=== PATIENT | female | born 1955 | race African-American/Black ===

== ENCOUNTER 2020-11-18 10:52 | Inpatient (IN) | payer MEDICARE, MEDICAID ==
[~2020-11-18] VITALS: Ht 167.6 cm; Wt 80.6 kg
[2020-11-18 11:31] LABS: BASOPHILS % (AUTO) 0.2 % (0.0-2.0); HEMATOCRIT 40.8 % (36-46); HEMOGLOBIN 12.7 g/dL (12.0-16.0); LYMPHOCYTES # (AUTO) 2.5 K/uL (1.0-4.8); LYMPHOCYTES % (AUTO) 41.2 % (22.0-44.0); MEAN CORPUSCULAR HEMOGLOBIN 25.4 pg (26.0-34.0); MEAN CORPUSCULAR HGB CONC 31.3 G/dL (31.0-37.0); MEAN CORPUSCULAR VOLUME 81 fL (80-100); MONOCYTES # (AUTO) 0.4 K/uL (0.1-1.0); MONOCYTES % (AUTO) 6.8 % (2.0-9.0); NEUTROPHILS # (AUTO) 3.1 K/uL (1.8-7.7); NEUTROPHILS % (AUTO) 49.8 % (40.0-70.0); PLATELET COUNT (AUTO) 255 K/uL (150-450); RED BLOOD CELL COUNT(AUTO) 5.02 MIL/uL (4.00-5.20); RED CELL DISTRIBUTION WIDTH 15.1 % (11.5-14.5)
[2020-11-18 11:42] LABS: ANION GAP 5 mmol/L (8-16); CALCIUM, TOTAL 9.2 mg/dL (8.8-10.5); CARBON DIOXIDE 33 mmol/L (22-29); CHLORIDE 103 mmol/L (98-107); CREATININE 0.91 mg/dL (0.60-1.30); GLOMERULAR FILTR. RATE CALC > 60 mL/min (>60); GLUCOSE,RANDOM 125 mg/dL (70-110); POTASSIUM 3.8 mmol/L (3.5-5.1); SODIUM SERUM 141 mmol/L (136-145); UREA NITROGEN, BLOOD 12 mg/dL (7-18)
[2020-11-18 11:47] LABS: ALANINE AMINOTRANSFERASE 50 U/L (12-78); ALBUMIN 3.4 g/dL (3.4-5.0); ALKALINE PHOSPHATASE 77 U/L (46-116); ASPARTATE AMINOTRANSFERASE 51 U/L (15-37); BILIRUBIN,TOTAL 0.2 mg/dL (0.1-1.0); TOTAL PROTEIN, SERUM 7.8 g/dL (6.4-8.2)
[2020-11-18 11:49] LABS: PROTHROMBIN TIME 11.1 SEC (9.4-11.6)
[2020-11-18 12:10] LABS: COVID AG,FIA SOURCE NASOPHARYNGEAL
[2020-11-18] MEDS ORDERED: ASPIRIN 81 MG CHEWABLE TABLET PO ONE (12:15)
[2020-11-18] MEDS ORDERED: 0.9% SODIUM CHLORIDE 10 ML SYRINGE IVP PRN (14:00)
[2020-11-18] MEDS ORDERED: CARV25 PO (16:03)
[2020-11-18] MEDS ORDERED: HYDR25TA84 PO (16:03)
[2020-11-18] MEDS ORDERED: CLON0.2T PO (16:03)
[2020-11-18] MEDS ORDERED: ASPI81TA39 PO (16:03)
[2020-11-18] MEDS ORDERED: CHOL100044 PO (16:06)
[2020-11-18] MEDS ORDERED: ATOR40TA28 PO (16:06)
[2020-11-18] MEDS ORDERED: HydrALAZINE HCL 20 MG/ML VIAL IVP ONE (16:45)
[2020-11-18 17:04] VITALS: BP 156/107
[2020-11-18] MEDS ORDERED: HydrALAZINE HCL 20 MG/ML VIAL IVP PRN (18:30)
[2020-11-18] MEDS ORDERED: ACETAMINOPHEN 325 MG TABLET PO PRN ×2 (18:30→19:45)
[2020-11-18 19:28] VITALS: BP 143/59
[2020-11-18] MEDS ORDERED: ONDANSETRON HCL 4 MG/2 ML VIAL IVP PRN (19:45)
[2020-11-18] MEDS ORDERED: BISACODYL 10 MG RECTAL RECTAL SUPPOSITORY PR PRN (19:45)
[2020-11-18] MEDS ORDERED: MAGNESIUM HYDROXIDE SUSPENSION 30 ML UDCUP PO PRN (19:45)
[2020-11-18] MEDS ORDERED: IPRATROPIUM BROMIDE 0.5 MG/2.5 ML NEB SOLUTION NEB PRN (19:45)
[2020-11-18] MEDS ORDERED: MORPHINE SULFATE 2 MG/ML SYRINGE IVP PRN (19:45)
[2020-11-18] MEDS ORDERED: ALBUTEROL SULFATE 2.5 MG/0.5 ML NEB SOLUTION NEB PRN (19:45)
[2020-11-18] MEDS: HYDROCODONE/ACETAMINOPHEN 5-325 MG TABLET PO PRN (20:23)
[2020-11-18] MEDS: CloNIDine HCL 0.2 MG TABLET PO SCH (20:23)
[2020-11-18] MEDS: DOCUSATE SODIUM 100 MG CAPSULE PO SCH (20:23)
[2020-11-18] MEDS: HEPARIN SODIUM,PORCINE 5,000 UNITS/ML VIAL SQ SCH (22:55)
[2020-11-18 23:34] VITALS: BP 141/88
[2020-11-19] VITALS (7 sets, daily range): BP systolic 119–149; BP diastolic 70–85
[2020-11-19 06:27] LABS: BASOPHILS % (AUTO) 0.7 % (0.0-2.0); EOSINOPHILS % (AUTO) 2.2 % (1.0-6.0); HEMOGLOBIN 11.6 g/dL (12.0-16.0); LYMPHOCYTES % (AUTO) 47.6 % (22.0-44.0); MEAN CORPUSCULAR HEMOGLOBIN 25.3 pg (26.0-34.0); MEAN CORPUSCULAR HGB CONC 31.4 G/dL (31.0-37.0); MEAN CORPUSCULAR VOLUME 81 fL (80-100); MONOCYTES # (AUTO) 0.6 K/uL (0.1-1.0); MONOCYTES % (AUTO) 9.4 % (2.0-9.0); NEUTROPHILS # (AUTO) 2.5 K/uL (1.8-7.7); NEUTROPHILS % (AUTO) 40.1 % (40.0-70.0); PLATELET COUNT (AUTO) 239 K/uL (150-450); RED BLOOD CELL COUNT(AUTO) 4.59 MIL/uL (4.00-5.20); RED CELL DISTRIBUTION WIDTH 14.8 % (11.5-14.5)
[2020-11-19 07:04] LABS: ALANINE AMINOTRANSFERASE 42 U/L (12-78); ALKALINE PHOSPHATASE 64 U/L (46-116); ANION GAP 12 mmol/L (8-16); ASPARTATE AMINOTRANSFERASE 46 U/L (15-37); BILIRUBIN,TOTAL 0.2 mg/dL (0.1-1.0); CALCIUM, TOTAL 8.4 mg/dL (8.8-10.5); CARBON DIOXIDE 27 mmol/L (22-29); CHLORIDE 103 mmol/L (98-107); CREATININE 0.89 mg/dL (0.60-1.30); GLOMERULAR FILTR. RATE CALC > 60 mL/min (>60); GLUCOSE,RANDOM 118 mg/dL (70-110); POTASSIUM 3.5 mmol/L (3.5-5.1); SODIUM SERUM 142 mmol/L (136-145); TOTAL PROTEIN, SERUM 6.9 g/dL (6.4-8.2); UREA NITROGEN, BLOOD 17 mg/dL (7-18)
[2020-11-19] MEDS: DOCUSATE SODIUM 100 MG CAPSULE PO SCH ×2 (08:13→20:03)
[2020-11-19] MEDS: CHOLECALCIFEROL (VIT D3) 1,000 UNITS [25 MCG] TABLET PO SCH (08:13)
[2020-11-19] MEDS: ASPIRIN 81 MG CHEWABLE TABLET PO SCH (08:13)
[2020-11-19] MEDS: CloNIDine HCL 0.2 MG TABLET PO SCH ×3 (08:14→20:03)
[2020-11-19] MEDS: CARVEDILOL 25 MG TABLET PO SCH ×2 (08:14→18:36)
[2020-11-19] MEDS: HEPARIN SODIUM,PORCINE 5,000 UNITS/ML VIAL SQ SCH ×3 (08:14→23:17)
[2020-11-19] MEDS: HydrALAZINE HCL 25 MG TABLET PO SCH ×3 (08:17→18:36)
[2020-11-19] MEDS: HYDROCODONE/ACETAMINOPHEN 5-325 MG TABLET PO PRN ×3 (08:20→20:31)
[2020-11-19] MEDS: ATORVASTATIN CALCIUM 40 MG TABLET PO SCH (20:03)
[2020-11-20] MEDS: HYDROCODONE/ACETAMINOPHEN 5-325 MG TABLET PO PRN ×3 (03:10→20:03)
[2020-11-20 04:07] VITALS: BP 104/60
[2020-11-20] MEDS: HEPARIN SODIUM,PORCINE 5,000 UNITS/ML VIAL SQ SCH ×3 (07:59→23:20)
[2020-11-20] MEDS: CHOLECALCIFEROL (VIT D3) 1,000 UNITS [25 MCG] TABLET PO SCH (08:00)
[2020-11-20] MEDS: HydrALAZINE HCL 25 MG TABLET PO SCH ×3 (08:00→18:45)
[2020-11-20] MEDS: ASPIRIN 81 MG CHEWABLE TABLET PO SCH (08:00)
[2020-11-20] MEDS: DOCUSATE SODIUM 100 MG CAPSULE PO SCH ×2 (08:00→19:54)
[2020-11-20] MEDS: CARVEDILOL 25 MG TABLET PO SCH ×2 (08:59→18:40)
[2020-11-20] MEDS: CloNIDine HCL 0.2 MG TABLET PO SCH ×3 (09:00→19:54)
[2020-11-20 09:01] VITALS: BP 122/68
[2020-11-20 12:41] VITALS: BP 112/68
[2020-11-20 17:00] VITALS: BP 145/82
[2020-11-20] MEDS: ATORVASTATIN CALCIUM 40 MG TABLET PO SCH (19:54)
[2020-11-20 20:22] VITALS: BP 147/58
[2020-11-20] MEDS: ZOLPIDEM TARTRATE 5 MG TABLET PO PRN (20:33)
[2020-11-20 23:25] VITALS: BP 139/64
[2020-11-21] VITALS (7 sets, daily range): BP systolic 132–164; BP diastolic 59–83
[2020-11-21] MEDS: HEPARIN SODIUM,PORCINE 5,000 UNITS/ML VIAL SQ SCH ×3 (07:44→23:25)
[2020-11-21] MEDS: CARVEDILOL 25 MG TABLET PO SCH ×2 (07:44→18:11)
[2020-11-21] MEDS: HydrALAZINE HCL 25 MG TABLET PO SCH ×3 (07:44→18:11)
[2020-11-21] MEDS: ASPIRIN 81 MG CHEWABLE TABLET PO SCH (08:15)
[2020-11-21] MEDS: CloNIDine HCL 0.2 MG TABLET PO SCH ×3 (08:15→20:03)
[2020-11-21] MEDS: CHOLECALCIFEROL (VIT D3) 1,000 UNITS [25 MCG] TABLET PO SCH (08:16)
[2020-11-21] MEDS: DOCUSATE SODIUM 100 MG CAPSULE PO SCH ×2 (08:16→20:03)
[2020-11-21] MEDS: HYDROCODONE/ACETAMINOPHEN 5-325 MG TABLET PO PRN ×2 (08:16→15:29)
[2020-11-21] MEDS: ATORVASTATIN CALCIUM 40 MG TABLET PO SCH (20:03)
[2020-11-21] MEDS: ZOLPIDEM TARTRATE 5 MG TABLET PO PRN (20:03)
[2020-11-22] MEDS: HYDROCODONE/ACETAMINOPHEN 5-325 MG TABLET PO PRN ×2 (01:00→09:25)
[2020-11-22 03:55] VITALS: BP 127/77
[2020-11-22 08:03] VITALS: BP 144/97
[2020-11-22] MEDS: HEPARIN SODIUM,PORCINE 5,000 UNITS/ML VIAL SQ SCH ×2 (09:17→16:46)
[2020-11-22] MEDS: DOCUSATE SODIUM 100 MG CAPSULE PO SCH (09:17)
[2020-11-22] MEDS: CARVEDILOL 25 MG TABLET PO SCH ×2 (09:17→18:47)
[2020-11-22] MEDS: HydrALAZINE HCL 25 MG TABLET PO SCH ×3 (09:17→18:47)
[2020-11-22] MEDS: CHOLECALCIFEROL (VIT D3) 1,000 UNITS [25 MCG] TABLET PO SCH (09:17)
[2020-11-22] MEDS: ASPIRIN 81 MG CHEWABLE TABLET PO SCH (09:17)
[2020-11-22] MEDS: CloNIDine HCL 0.2 MG TABLET PO SCH ×2 (09:17→16:46)
[2020-11-22 12:42] VITALS: BP 143/73
[2020-11-22 15:24] VITALS: BP 150/75
[2020-11-22] MEDS ORDERED: BusPIRone HCL 5 MG TABLET PO SCH (16:00)
[2020-11-22 18:22] LABS: COVID AG,FIA SOURCE NASAL SWAB
[2020-11-22 18:44] VITALS: BP 163/74
[2020-11-22] MEDS ORDERED: QUEtiapine FUMARATE 100 MG TABLET PO SCH (21:00)
== END 2020-11-22 20:25 | DRG 69 ==
LOC: EMS 10:55 → 5S 15:45 → 6S 11-20 20:15
PROVIDERS: ADMIT Hospitalist; ATTEND Hospitalist
DX: G45.9 Transient cerebral ischemic attack, unspecified (principal); I69.351 Hemiplegia and hemiparesis following cerebral infarction affecting right dominant side; R45.851 Suicidal ideations; I10 Essential (primary) hypertension; F15.10 Other stimulant abuse, uncomplicated; F32.9 Major depressive disorder, single episode, unspecified; F25.1 Schizoaffective disorder, depressive type; F41.9 Anxiety disorder, unspecified; Z20.822 Contact with and (suspected) exposure to COVID-19; E78.5 Hyperlipidemia, unspecified; Z91.81 History of falling; Z91.5 Personal history of self-harm; Z72.0 Tobacco use; Z79.82 Long term (current) use of aspirin; Z79.899 Other long term (current) drug therapy; Z91.012 Allergy to eggs
CPT/HCPCS: 70450; 71045; 80053; 84484; 85025; 85610; 85730; 86850; 86900; 86901; 92610; 93005; 97110; 97112; 97162; 97165; 97535; 99291; J0360; J1644; 36415-L1; 36415-TC

== ENCOUNTER 2020-11-22 16:37 | Inpatient (IN) | payer MEDICARE, MEDICAID ==
[~2020-11-22] VITALS: Ht 157.5 cm; Wt 77.1 kg
[~2020-11-22 16:37] MED LIST: ASPI81TA39 PO; ATOR40TA28 PO; CARV25 PO; CHOL100044 PO; CLON0.2T PO; HYDR25TA84 PO
[2020-11-22 19:30] VITALS: BP 140/65
[2020-11-22] MEDS ORDERED: HALOPERIDOL 5 MG TABLET PO PRN (19:45)
[2020-11-22] MEDS ORDERED: ZOLPIDEM TARTRATE 10 MG TABLET PO PRN (19:45)
[2020-11-22] MEDS: QUEtiapine FUMARATE 100 MG TABLET PO SCH (20:18)
[2020-11-22] MEDS: BusPIRone HCL 5 MG TABLET PO SCH (20:18)
[2020-11-22] MEDS ORDERED: ATORVASTATIN CALCIUM 40 MG TABLET PO SCH (21:00)
[2020-11-23 06:16] LABS: BASOPHILS % (AUTO) 0.6 % (0.0-2.0); EOSINOPHILS % (AUTO) 1.9 % (1.0-6.0); HEMATOCRIT 38.3 % (36-46); HEMOGLOBIN 11.8 g/dL (12.0-16.0); LYMPHOCYTES # (AUTO) 3.1 K/uL (1.0-4.8); LYMPHOCYTES % (AUTO) 52.5 % (22.0-44.0); MEAN CORPUSCULAR HGB CONC 30.8 G/dL (31.0-37.0); MEAN CORPUSCULAR VOLUME 81 fL (80-100); MONOCYTES # (AUTO) 0.5 K/uL (0.1-1.0); MONOCYTES % (AUTO) 8.2 % (2.0-9.0); NEUTROPHILS # (AUTO) 2.1 K/uL (1.8-7.7); NEUTROPHILS % (AUTO) 36.8 % (40.0-70.0); PLATELET COUNT (AUTO) 216 K/uL (150-450); RED BLOOD CELL COUNT(AUTO) 4.73 MIL/uL (4.00-5.20); RED CELL DISTRIBUTION WIDTH 15.2 % (11.5-14.5)
[2020-11-23] MEDS ORDERED: NICOTINE 14 MG/24 HOUR PATCH TD PRN (07:30)
[2020-11-23] MEDS ORDERED: MAG HYDROX/AL HYDROX/SIMETH ES 30 ML SUSPENSION UDCUP PO PRN (07:30)
[2020-11-23] MEDS ORDERED: IBUPROFEN 400 MG TABLET PO PRN (07:30)
[2020-11-23] MEDS ORDERED: DOCUSATE SODIUM 100 MG CAPSULE PO PRN (07:30)
[2020-11-23] MEDS ORDERED: ONDANSETRON HCL 4 MG TABLET PO PRN (07:30)
[2020-11-23] MEDS ORDERED: CloNIDine HCL 0.1 MG TABLET PO PRN (07:30)
[2020-11-23] MEDS ORDERED: GuaiFENesin/D-METHORPHAN [SUGAR-FREE] 200-20MG/10 ML SYRUP UDCUP PO PRN (07:30)
[2020-11-23] MEDS ORDERED: ACETAMINOPHEN 325 MG TABLET PO PRN (07:30)
[2020-11-23] MEDS ORDERED: MAGNESIUM HYDROXIDE SUSPENSION 30 ML UDCUP PO PRN (07:30)
[2020-11-23] MEDS ORDERED: PETROLATUM,WHITE 28 GM JELLY TP PRN (07:30)
[2020-11-23] MEDS ORDERED: LOPERAMIDE HCL 2 MG CAPSULE PO PRN (07:30)
[2020-11-23] MEDS ORDERED: ALBUTEROL SULFATE HFA 90 MCG/PUFF 8 GM INHALER IH PRN (07:30)
[2020-11-23 07:41] LABS: ALANINE AMINOTRANSFERASE 50 U/L (12-78); ALBUMIN 3.3 g/dL (3.4-5.0); ALKALINE PHOSPHATASE 57 U/L (46-116); ANION GAP 8 mmol/L (8-16); ASPARTATE AMINOTRANSFERASE 58 U/L (15-37); BILIRUBIN,TOTAL 0.2 mg/dL (0.1-1.0); CALCIUM, TOTAL 9.2 mg/dL (8.8-10.5); CARBON DIOXIDE 27 mmol/L (22-29); CHLORIDE 107 mmol/L (98-107); CREATININE 0.84 mg/dL (0.60-1.30); GLOMERULAR FILTR. RATE CALC > 60 mL/min (>60); GLUCOSE,RANDOM 86 mg/dL (70-110); POTASSIUM 3.7 mmol/L (3.5-5.1); SODIUM SERUM 142 mmol/L (136-145); UREA NITROGEN, BLOOD 16 mg/dL (7-18)
[2020-11-23] MEDS ORDERED: CHOLECALCIFEROL (VIT D3) 1,000 UNITS [25 MCG] TABLET PO SCH (09:00)
[2020-11-23] MEDS ORDERED: DOCUSATE SODIUM 100 MG CAPSULE PO SCH (09:00)
[2020-11-23] MEDS ORDERED: CloNIDine HCL 0.2 MG TABLET PO SCH (09:00)
[2020-11-23] MEDS ORDERED: CARVEDILOL 25 MG TABLET PO SCH (09:00)
[2020-11-23] MEDS ORDERED: HydrALAZINE HCL 25 MG TABLET PO SCH (09:00)
[2020-11-23] MEDS ORDERED: ASPIRIN 81 MG DR TABLET PO SCH (09:00)
[2020-11-23] MEDS: BusPIRone HCL 5 MG TABLET PO SCH ×3 (09:02→20:25)
[2020-11-23] MEDS: CHOLECALCIFEROL (VIT D3) 1,000 UNITS [25 MCG] TABLET PO SCH (09:03)
[2020-11-23] MEDS: CARVEDILOL 25 MG TABLET PO SCH ×2 (09:03→17:36)
[2020-11-23] MEDS: CloNIDine HCL 0.2 MG TABLET PO SCH ×3 (09:03→16:12)
[2020-11-23] MEDS: HydrALAZINE HCL 25 MG TABLET PO SCH ×3 (09:03→17:36)
[2020-11-23] MEDS: ATORVASTATIN CALCIUM 40 MG TABLET PO SCH (09:04)
[2020-11-23] MEDS: LORazepam 2 MG TABLET PO PRN (09:04)
[2020-11-23] MEDS: ASPIRIN 81 MG CHEWABLE TABLET PO SCH (09:08)
[2020-11-23 12:26] VITALS: BP 139/65
[2020-11-23 16:30] VITALS: BP 151/76
[2020-11-23] MEDS: QUEtiapine FUMARATE 100 MG TABLET PO SCH (20:25)
[2020-11-24 06:46] VITALS: BP 152/76
[2020-11-24] MEDS: HydrALAZINE HCL 25 MG TABLET PO SCH ×3 (06:59→16:31)
[2020-11-24] MEDS: CARVEDILOL 25 MG TABLET PO SCH ×2 (06:59→16:31)
[2020-11-24 08:30] VITALS: BP 108/50
[2020-11-24] MEDS ORDERED: ASPI-1444 PO (11:06)
[2020-11-24] MEDS ORDERED: CARV3.1231 PO (11:06)
[2020-11-24 11:10] VITALS: BP 151/75
[2020-11-24] MEDS: ATORVASTATIN CALCIUM 40 MG TABLET PO SCH (11:15)
[2020-11-24] MEDS: CloNIDine HCL 0.2 MG TABLET PO SCH ×3 (11:15→16:31)
[2020-11-24] MEDS: LORazepam 2 MG TABLET PO PRN ×2 (11:15→17:48)
[2020-11-24] MEDS: ASPIRIN 81 MG CHEWABLE TABLET PO SCH (11:16)
[2020-11-24] MEDS: CHOLECALCIFEROL (VIT D3) 1,000 UNITS [25 MCG] TABLET PO SCH (11:16)
[2020-11-24] MEDS: BusPIRone HCL 5 MG TABLET PO SCH ×3 (11:16→20:52)
[2020-11-24 14:40] VITALS: BP 152/72
[2020-11-24 16:00] VITALS: BP 155/103
[2020-11-24] MEDS: QUEtiapine FUMARATE 100 MG TABLET PO SCH (20:52)
[2020-11-25 07:50] VITALS: BP 145/61
[2020-11-25] MEDS: CARVEDILOL 25 MG TABLET PO SCH ×2 (07:50→16:35)
[2020-11-25] MEDS: HydrALAZINE HCL 25 MG TABLET PO SCH ×3 (07:50→16:35)
[2020-11-25] MEDS: BusPIRone HCL 5 MG TABLET PO SCH ×3 (08:00→20:03)
[2020-11-25] MEDS: ASPIRIN 81 MG CHEWABLE TABLET PO SCH (08:00)
[2020-11-25] MEDS: CloNIDine HCL 0.2 MG TABLET PO SCH ×3 (08:00→16:35)
[2020-11-25] MEDS: ATORVASTATIN CALCIUM 40 MG TABLET PO SCH (08:00)
[2020-11-25] MEDS: CHOLECALCIFEROL (VIT D3) 1,000 UNITS [25 MCG] TABLET PO SCH (08:01)
[2020-11-25 08:35] VITALS: BP 145/61
[2020-11-25 08:55] VITALS: BP 131/76
[2020-11-25] MEDS: LORazepam 2 MG TABLET PO PRN (11:02)
[2020-11-25 16:47] VITALS: BP 161/76
[2020-11-25] MEDS: QUEtiapine FUMARATE 100 MG TABLET PO SCH (20:03)
[2020-11-26] MEDS: LORazepam 2 MG TABLET PO PRN ×2 (05:14→12:09)
[2020-11-26] MEDS: CARVEDILOL 25 MG TABLET PO SCH ×2 (06:34→16:18)
[2020-11-26] MEDS: HydrALAZINE HCL 25 MG TABLET PO SCH ×3 (06:34→16:18)
[2020-11-26] MEDS: BusPIRone HCL 5 MG TABLET PO SCH ×3 (08:27→20:26)
[2020-11-26] MEDS: ASPIRIN 81 MG CHEWABLE TABLET PO SCH (08:28)
[2020-11-26] MEDS: CHOLECALCIFEROL (VIT D3) 1,000 UNITS [25 MCG] TABLET PO SCH (08:28)
[2020-11-26] MEDS: ATORVASTATIN CALCIUM 40 MG TABLET PO SCH (08:28)
[2020-11-26] MEDS: CloNIDine HCL 0.2 MG TABLET PO SCH ×3 (08:28→16:17)
[2020-11-26 08:53] VITALS: BP 168/59
[2020-11-26 16:06] VITALS: BP 148/73
[2020-11-26] MEDS: QUEtiapine FUMARATE 100 MG TABLET PO SCH (20:26)
[2020-11-27] MEDS: CARVEDILOL 25 MG TABLET PO SCH (06:31)
[2020-11-27] MEDS: HydrALAZINE HCL 25 MG TABLET PO SCH ×2 (06:31→12:43)
[2020-11-27 06:32] VITALS: BP 130/70
[2020-11-27 08:23] VITALS: BP 135/55
[2020-11-27] MEDS: CHOLECALCIFEROL (VIT D3) 1,000 UNITS [25 MCG] TABLET PO SCH (09:06)
[2020-11-27] MEDS: BusPIRone HCL 5 MG TABLET PO SCH ×2 (09:06→16:18)
[2020-11-27] MEDS: ATORVASTATIN CALCIUM 40 MG TABLET PO SCH (09:06)
[2020-11-27] MEDS: CloNIDine HCL 0.2 MG TABLET PO SCH ×3 (09:06→16:18)
[2020-11-27] MEDS: ASPIRIN 81 MG CHEWABLE TABLET PO SCH (09:06)
[2020-11-27] MEDS: LORazepam 2 MG TABLET PO PRN (10:01)
[2020-11-27] MEDS ORDERED: BUSP5TAB20 PO (11:52)
[2020-11-27] MEDS ORDERED: QUET100T33 PO (11:52)
[2020-11-27 16:01] VITALS: BP 145/77
== END 2020-11-27 17:00 | disposition home or self-care (01) | DRG 885 ==
LOC: 3EX 19:25
DX: F25.1 Schizoaffective disorder, depressive type (principal); R45.851 Suicidal ideations; F41.9 Anxiety disorder, unspecified; I10 Essential (primary) hypertension; F15.10 Other stimulant abuse, uncomplicated; E78.5 Hyperlipidemia, unspecified; E55.9 Vitamin D deficiency, unspecified; Z91.012 Allergy to eggs; Z86.73 Personal history of transient ischemic attack (TIA), and cerebral infarction without residual deficits; Z59.0 Homelessness
CPT/HCPCS: 80053; 85025; 87081; G0378

== ENCOUNTER → 2021-01-17 | Outpatient (CLI) | payer MEDICARE, MEDICAID ==
[~2021-01-17] VITALS: Ht 162.6 cm; Wt 79.5 kg
[~2021-01-17] MED LIST changes: +ASPI-1444 PO; +ASPI-1450 PO; -ASPI81TA39 PO; +BUSP5TAB20 PO; +CARV3 PO; +CHL25 PO; +CHOL-35 PO; -CHOL100044 PO; +DOCU-270 PO; +FLUO10CA24 PO; +HYDR-4031 PO; +QUET100T34 PO; +QUET200T PO
[2021-01-17 10:31] VITALS: BP 153/84
== END | disposition home or self-care (01) ==
LOC: SRCNTR 09:56
PROVIDERS: ATTEND Hospitalist
DX: M25.562 Pain in left knee (principal); I10 Essential (primary) hypertension; E78.5 Hyperlipidemia, unspecified; G45.9 Transient cerebral ischemic attack, unspecified; Z72.0 Tobacco use; F19.10 Other psychoactive substance abuse, uncomplicated; F32.9 Major depressive disorder, single episode, unspecified
CPT/HCPCS: G0463

== ENCOUNTER → 2021-03-22 | Outpatient (CLI) | payer MEDICARE, MEDICAID ==
[~2021-03-22] VITALS: Ht 152.4 cm; Wt 73.6 kg
[~2021-03-22] MED LIST changes: +INFLUENZA VIRUS VACCINE QVS 2021-22 (6MO+)/PF 60 MCG/0.5 ML SYRINGE IM. ONE
[2021-03-22 11:32] VITALS: BP 168/104
== END | disposition home or self-care (01) ==
LOC: SRCNTR 11:03
PROVIDERS: ATTEND Hospitalist
DX: Z23 Encounter for immunization (principal); I10 Essential (primary) hypertension; E78.5 Hyperlipidemia, unspecified; F32.9 Major depressive disorder, single episode, unspecified; G45.9 Transient cerebral ischemic attack, unspecified; F19.10 Other psychoactive substance abuse, uncomplicated
CPT/HCPCS: 90471; 90686; G0463

== ENCOUNTER 2021-06-21 11:33 | Emergency (ER) | payer MEDICARE, MEDICAID ==
[~2021-06-21] VITALS: Ht 157.5 cm; Wt 81.8 kg
[~2021-06-21 11:33] MED LIST changes: -ASPI-1444 PO; -ASPI-1450 PO; -BUSP5TAB20 PO; +CARV12 PO; -CARV25 PO; -CARV3 PO; -CHL25 PO; -CHOL-35 PO; +CIPR-278 PO; +CLON-592 PO; -DOCU-270 PO; -FLUO10CA24 PO; -HYDR-4031 PO; -INFLUENZA VIRUS VACCINE QVS 2021-22 (6MO+)/PF 60 MCG/0.5 ML SYRINGE IM. ONE; +METR500 PO; -QUET100T34 PO; -QUET200T PO; +QUET25TA PO
[2021-06-21 12:03] VITALS: BP 142/82
[2021-06-21 12:16] LABS: BASOPHILS % (AUTO) 0.7 % (0.0-2.0); EOSINOPHILS % (AUTO) 1.8 % (1.0-6.0); HEMATOCRIT 31.7 % (36-46); HEMOGLOBIN 9.9 g/dL (12.0-16.0); LYMPHOCYTES # (AUTO) 3.9 K/uL (1.0-4.8); LYMPHOCYTES % (AUTO) 42.5 % (22.0-44.0); MEAN CORPUSCULAR HEMOGLOBIN 21.9 pg (26.0-34.0); MEAN CORPUSCULAR HGB CONC 31.2 G/dL (31.0-37.0); MEAN CORPUSCULAR VOLUME 70 fL (80-100); MONOCYTES # (AUTO) 0.5 K/uL (0.1-1.0); MONOCYTES % (AUTO) 5.8 % (2.0-9.0); NEUTROPHILS # (AUTO) 4.5 K/uL (1.8-7.7); NEUTROPHILS % (AUTO) 49.2 % (40.0-70.0); PLATELET COUNT (AUTO) 394 K/uL (150-450); RED BLOOD CELL COUNT(AUTO) 4.52 MIL/uL (4.00-5.20); RED CELL DISTRIBUTION WIDTH 18.1 % (11.5-14.5)
[2021-06-21 12:44] LABS: ANION GAP 9 mmol/L (8-16); CALCIUM, TOTAL 8.2 mg/dL (8.8-10.5); CARBON DIOXIDE 27 mmol/L (22-29); CHLORIDE 107 mmol/L (98-107); CREATININE 0.73 mg/dL (0.60-1.30); GLOMERULAR FILTR. RATE CALC > 60 mL/min (>60); GLUCOSE,RANDOM 113 mg/dL (70-110); POTASSIUM 3.2 mmol/L (3.5-5.1); SODIUM SERUM 143 mmol/L (136-145); UREA NITROGEN, BLOOD 9 mg/dL (7-18)
[2021-06-21] MEDS ORDERED: ACETAMINOPHEN 325 MG TABLET PO PRN (13:00)
[2021-06-21] MEDS ORDERED: ASPIRIN 81 MG CHEWABLE TABLET PO ONE (13:00)
[2021-06-21] MEDS ORDERED: ONDANSETRON HCL 4 MG/2 ML VIAL IVP PRN (13:00)
[2021-06-21] MEDS ORDERED: NITROGLYCERIN 2% (1 GM=INCH) PACKET TP ONE (13:00)
[2021-06-21 14:12] LABS: COVID AG,FIA SOURCE NASOPHARYNGEAL
[2021-07-05] MEDS ORDERED: ASPI81 PO (21:11)
== END 2021-06-21 16:00 | disposition home or self-care (01) ==
LOC: EMS 11:33
DX: R07.89 Other chest pain (principal); I10 Essential (primary) hypertension; I25.10 Atherosclerotic heart disease of native coronary artery without angina pectoris; F32.9 Major depressive disorder, single episode, unspecified; F41.9 Anxiety disorder, unspecified; F15.90 Other stimulant use, unspecified, uncomplicated; F17.210 Nicotine dependence, cigarettes, uncomplicated; Z88.8 Allergy status to other drugs, medicaments and biological substances; Z79.899 Other long term (current) drug therapy; Z91.012 Allergy to eggs; Z20.822 Contact with and (suspected) exposure to COVID-19
CPT/HCPCS: 71045; 80048; 84484; 85025; 99283; 36415-L1; 36415-TC

== ENCOUNTER 2021-06-27 13:33 | Inpatient (IN) | payer MEDICARE, MEDICAID ==
[~2021-06-27] VITALS: Ht 157.5 cm; Wt 73.6 kg
[~2021-06-27 13:33] MED LIST changes: -CIPR-278 PO
[2021-06-27 18:24] LABS: BASOPHILS % (AUTO) 0.8 % (0.0-2.0); EOSINOPHILS % (AUTO) 2.4 % (1.0-6.0); HEMATOCRIT 35.7 % (36-46); HEMOGLOBIN 11.1 g/dL (12.0-16.0); LYMPHOCYTES # (AUTO) 4.4 K/uL (1.0-4.8); MEAN CORPUSCULAR HEMOGLOBIN 21.9 pg (26.0-34.0); MEAN CORPUSCULAR VOLUME 71 fL (80-100); MONOCYTES # (AUTO) 0.7 K/uL (0.1-1.0); MONOCYTES % (AUTO) 7.4 % (2.0-9.0); NEUTROPHILS % (AUTO) 42.4 % (40.0-70.0); PLATELET COUNT (AUTO) 394 K/uL (150-450); RED BLOOD CELL COUNT(AUTO) 5.04 MIL/uL (4.00-5.20); RED CELL DISTRIBUTION WIDTH 18.3 % (11.5-14.5)
[2021-06-27 18:46] LABS: ALANINE AMINOTRANSFERASE 40 U/L (12-78); ALBUMIN 3.2 g/dL (3.4-5.0); ALKALINE PHOSPHATASE 102 U/L (46-116); ANION GAP 11 mmol/L (8-16); ASPARTATE AMINOTRANSFERASE 63 U/L (15-37); BILIRUBIN,TOTAL 0.2 mg/dL (0.1-1.0); CALCIUM, TOTAL 9.1 mg/dL (8.8-10.5); CARBON DIOXIDE 27 mmol/L (22-29); CHLORIDE 105 mmol/L (98-107); CREATININE 0.96 mg/dL (0.60-1.30); GLOMERULAR FILTR. RATE CALC > 60 mL/min (>60); GLUCOSE,RANDOM 95 mg/dL (70-110); SODIUM SERUM 143 mmol/L (136-145); TOTAL PROTEIN, SERUM 8.2 g/dL (6.4-8.2); UREA NITROGEN, BLOOD 12 mg/dL (7-18)
[2021-06-27 18:48] LABS: POTASSIUM 2.7 mmol/L (3.5-5.1)
[2021-06-27] MEDS ORDERED: POTASSIUM CHLORIDE 20 MEQ ER TABLET PO ONE (19:00)
[2021-06-27 19:47] LABS: COVID AG,FIA SOURCE NASOPHARYNGEAL
[2021-06-27] MEDS ORDERED: MAGNESIUM SULFATE 2 GM/WATER 50 ML IV ONE (20:45)
[2021-06-27 21:02] LABS: APPEARANCE,URINE SL CLOUDY (CLEAR); GLUCOSE, URINE (UA) NEGATIVE (NEGATIVE); KETONES,URINE TRACE mg/dL (NEGATIVE); LEUKOCYTE ESTERASE ,URINE NEGATIVE (NEGATIVE); NITRATE,URINE NEGATIVE (NEGATIVE); OCCULT BLOOD,URINE NEGATIVE (NEGATIVE); PROTEIN,URINE SEE CONFIRM (NEGATIVE)
[2021-06-27 21:03] LABS: BILIRUBIN,URINE PRELIM. POSITIVE (NEGATIVE)
[2021-06-27 21:05] LABS: AMPHET/METH SCREEN,URINE POSITIVE (NEGATIVE); BARBITURATE SCREEN, URINE NEGATIVE (NEGATIVE); BENZODIAZEPINES SCREEN,URINE NEGATIVE (NEGATIVE); CANNABINOID SCREEN,URINE POSITIVE (NEGATIVE); COCAINE SCREEN,URINE NEGATIVE (NEGATIVE); METHADONE SCREEN, URINE NEGATIVE (NEGATIVE); OPIATE SCREEN,URINE NEGATIVE (NEGATIVE)
[2021-06-27 21:08] LABS: PHENCYCLIDINE SCREEN,URINE NEGATIVE (NEGATIVE)
[2021-06-27 21:15] LABS: SULFOSALICYLIC ACID,URINE 1+ (Negative)
[2021-06-27] MEDS ORDERED: HALOPERIDOL 5 MG TABLET PO PRN (21:15)
[2021-06-27] MEDS ORDERED: ZOLPIDEM TARTRATE 10 MG TABLET PO PRN (21:15)
[2021-06-27 21:16] LABS: BACTERIA,URINE Few /HPF (None Seen); SQUAMOUS EPITHELIAL CELL,UR Moderate /LPF (None Seen)
[2021-06-27] MEDS: LORazepam 2 MG TABLET PO PRN (21:39)
[2021-06-27] MEDS: POTASSIUM CHL 10 MEQ/WATER 50 ML IV SCH ×2 (23:15→23:56)
[2021-06-28 00:27] LABS: CHOL/HDL RATIO 2.2 (3.9-5.7); CHOLESTEROL 112 mg/dL (131-200); HDL CHOLESTEROL 52 mg/dL (40-60); LDL CHOL (CALC.) 48 mg/dL (0-130); TRIGLYCERIDES 58 mg/dL (15-150)
[2021-06-28 04:09] LABS: ANION GAP 9 mmol/L (8-16); CALCIUM, TOTAL 8.1 mg/dL (8.8-10.5); CARBON DIOXIDE 26 mmol/L (22-29); CHLORIDE 108 mmol/L (98-107); CREATININE 0.81 mg/dL (0.60-1.30); GLOMERULAR FILTR. RATE CALC > 60 mL/min (>60); GLUCOSE,RANDOM 118 mg/dL (70-110); POTASSIUM 3.2 mmol/L (3.5-5.1); SODIUM SERUM 143 mmol/L (136-145); UREA NITROGEN, BLOOD 9 mg/dL (7-18)
[2021-06-28] MEDS: LORazepam 2 MG TABLET PO PRN ×2 (09:17→22:31)
[2021-06-28] MEDS ORDERED: -PHARMACY VACCINE NOTE- MISC ONE (15:45)
[2021-06-28] MEDS ORDERED: PNEUMOCOCCAL VACCINE POLYVALENT 0.5 ML VIAL [PPSV23] IM. ONE (16:00)
[2021-06-28 21:27] VITALS: BP 148/78
[2021-06-28] MEDS: CARVEDILOL 12.5 MG TABLET PO SCH (21:45)
[2021-06-28] MEDS: ATORVASTATIN CALCIUM 40 MG TABLET PO SCH (21:45)
[2021-06-28] MEDS: HydrALAZINE HCL 25 MG TABLET PO SCH (21:46)
[2021-06-28 22:31] VITALS: BP 138/74
[2021-06-29 00:10] VITALS: BP 130/80
[2021-06-29] MEDS ORDERED: ACETAMINOPHEN 325 MG TABLET PO PRN (07:00)
[2021-06-29] MEDS ORDERED: MAGNESIUM HYDROXIDE SUSPENSION 30 ML UDCUP PO PRN (07:00)
[2021-06-29] MEDS ORDERED: MAG HYDROX/AL HYDROX/SIMETH ES 30 ML SUSPENSION UDCUP PO PRN (07:00)
[2021-06-29] MEDS ORDERED: OMEPRAZOLE 20 MG CAPSULE PO PRN (07:00)
[2021-06-29] MEDS ORDERED: ONDANSETRON HCL 4 MG TABLET PO PRN (07:00)
[2021-06-29] MEDS ORDERED: BACITRACIN 28 GM OINTMENT TP PRN (07:00)
[2021-06-29] MEDS ORDERED: BENZOCAINE/MENTHOL LOZENGE PO PRN (07:00)
[2021-06-29] MEDS ORDERED: CloNIDine HCL 0.1 MG TABLET PO PRN (07:00)
[2021-06-29] MEDS ORDERED: PETROLATUM,WHITE 28 GM JELLY TP PRN (07:00)
[2021-06-29] MEDS ORDERED: LOPERAMIDE HCL 2 MG CAPSULE PO PRN (07:00)
[2021-06-29] MEDS ORDERED: DOCUSATE SODIUM 100 MG CAPSULE PO PRN (07:00)
[2021-06-29] MEDS: ALBUTEROL SULFATE HFA 90 MCG/PUFF 8 GM INHALER IH PRN ×2 (08:19→14:25)
[2021-06-29] MEDS: HydrALAZINE HCL 25 MG TABLET PO SCH ×2 (08:19→16:03)
[2021-06-29 08:20] VITALS: BP 132/53
[2021-06-29] MEDS: CARVEDILOL 12.5 MG TABLET PO SCH ×2 (08:20→16:03)
[2021-06-29] MEDS: CEPHALEXIN MONOHYDRATE 500 MG CAPSULE PO SCH ×2 (08:23→16:03)
[2021-06-29] MEDS: LORazepam 2 MG TABLET PO PRN ×2 (09:34→17:59)
[2021-06-29] MEDS: ASPIRIN 81 MG CHEWABLE TABLET PO SCH (12:13)
[2021-06-29 17:00] VITALS: BP 159/78
[2021-06-29 17:59] VITALS: BP 160/83
[2021-06-29] MEDS: IBUPROFEN 600 MG TABLET PO PRN (17:59)
[2021-06-29] MEDS ORDERED: QUET100T34 PO (19:27)
[2021-06-29] MEDS: GABAPENTIN 300 MG CAPSULE PO SCH (19:28)
[2021-06-29] MEDS: ATORVASTATIN CALCIUM 40 MG TABLET PO SCH (20:17)
[2021-06-29] MEDS: MIRTAZAPINE 15 MG TABLET PO SCH (20:19)
[2021-06-30] VITALS (8 sets, daily range): BP systolic 114–187; BP diastolic 60–103
[2021-06-30] MEDS: MULTIVITAMINS WITH MINERALS, THERAPEUTIC TABLET PO SCH (08:12)
[2021-06-30] MEDS: ASPIRIN 81 MG CHEWABLE TABLET PO SCH (08:12)
[2021-06-30] MEDS: AMOX TR/POT CLAV 500 MG/125 MG TABLET PO SCH ×2 (08:12→16:32)
[2021-06-30] MEDS: CARVEDILOL 12.5 MG TABLET PO SCH ×2 (08:12→16:32)
[2021-06-30] MEDS: CITALOPRAM HYDROBROMIDE 20 MG TABLET PO SCH (08:12)
[2021-06-30] MEDS: GABAPENTIN 300 MG CAPSULE PO SCH ×2 (08:12→16:32)
[2021-06-30] MEDS: HydrALAZINE HCL 25 MG TABLET PO SCH ×2 (08:12→16:32)
[2021-06-30] MEDS: IBUPROFEN 600 MG TABLET PO PRN ×2 (09:52→17:46)
[2021-06-30] MEDS: LORazepam 2 MG TABLET PO PRN (17:47)
[2021-06-30] MEDS: ATORVASTATIN CALCIUM 40 MG TABLET PO SCH (20:12)
[2021-06-30] MEDS: MIRTAZAPINE 15 MG TABLET PO SCH (20:13)
[2021-07-01 05:34] VITALS: BP 167/84
[2021-07-01 07:25] LABS: MAGNESIUM 1.5 mg/dL (1.80-2.40); PHOSPHORUS 4.9 mg/dL (2.5-4.9); POTASSIUM 3.6 mmol/L (3.5-5.1)
[2021-07-01 08:29] VITALS: BP 154/81
[2021-07-01] MEDS: MULTIVITAMINS WITH MINERALS, THERAPEUTIC TABLET PO SCH (08:29)
[2021-07-01] MEDS: CITALOPRAM HYDROBROMIDE 20 MG TABLET PO SCH (08:29)
[2021-07-01] MEDS: GABAPENTIN 300 MG CAPSULE PO SCH ×2 (08:29→16:20)
[2021-07-01] MEDS: CARVEDILOL 12.5 MG TABLET PO SCH ×2 (08:29→16:20)
[2021-07-01] MEDS: HydrALAZINE HCL 25 MG TABLET PO SCH ×2 (08:29→16:21)
[2021-07-01] MEDS: ASPIRIN 81 MG CHEWABLE TABLET PO SCH (08:29)
[2021-07-01] MEDS: AMOX TR/POT CLAV 500 MG/125 MG TABLET PO SCH ×2 (08:29→16:21)
[2021-07-01 16:30] VITALS: BP 141/84
[2021-07-01] MEDS: LORazepam 2 MG TABLET PO PRN (17:39)
[2021-07-01] MEDS: ATORVASTATIN CALCIUM 40 MG TABLET PO SCH (20:51)
[2021-07-01] MEDS: MIRTAZAPINE 15 MG TABLET PO SCH (20:51)
[2021-07-02 00:45] VITALS: BP 140/82
[2021-07-02 08:27] VITALS: BP 111/64
[2021-07-02] MEDS: GABAPENTIN 300 MG CAPSULE PO SCH ×2 (08:44→16:25)
[2021-07-02] MEDS: ASPIRIN 81 MG CHEWABLE TABLET PO SCH (08:44)
[2021-07-02] MEDS: CITALOPRAM HYDROBROMIDE 20 MG TABLET PO SCH (08:45)
[2021-07-02] MEDS: MULTIVITAMINS WITH MINERALS, THERAPEUTIC TABLET PO SCH (08:45)
[2021-07-02] MEDS: HydrALAZINE HCL 25 MG TABLET PO SCH ×2 (08:45→16:25)
[2021-07-02] MEDS: CARVEDILOL 12.5 MG TABLET PO SCH ×2 (08:45→16:25)
[2021-07-02] MEDS: AMOX TR/POT CLAV 500 MG/125 MG TABLET PO SCH ×2 (08:45→16:25)
[2021-07-02] MEDS: LORazepam 2 MG TABLET PO PRN ×2 (10:31→17:10)
[2021-07-02 16:05] VITALS: BP 154/92
[2021-07-02 17:02] VITALS: BP 124/64
[2021-07-02] MEDS: IBUPROFEN 600 MG TABLET PO PRN (17:10)
[2021-07-02] MEDS: MIRTAZAPINE 15 MG TABLET PO SCH (20:28)
[2021-07-02] MEDS: ATORVASTATIN CALCIUM 40 MG TABLET PO SCH (20:28)
[2021-07-03] VITALS (9 sets, daily range): BP systolic 111–165; BP diastolic 65–91
[2021-07-03 07:27] LABS: COVID AG,FIA SOURCE NASOPHARYNGEAL
[2021-07-03] MEDS: MULTIVITAMINS WITH MINERALS, THERAPEUTIC TABLET PO SCH (10:08)
[2021-07-03] MEDS: CITALOPRAM HYDROBROMIDE 20 MG TABLET PO SCH (10:11)
[2021-07-03] MEDS: ASPIRIN 81 MG CHEWABLE TABLET PO SCH (10:11)
[2021-07-03] MEDS: HydrALAZINE HCL 25 MG TABLET PO SCH (10:11)
[2021-07-03] MEDS: CARVEDILOL 12.5 MG TABLET PO SCH (10:11)
[2021-07-03] MEDS: GABAPENTIN 300 MG CAPSULE PO SCH (10:11)
[2021-07-03] MEDS: AMOX TR/POT CLAV 500 MG/125 MG TABLET PO SCH (10:12)
[2021-07-03] MEDS ORDERED: CITA-144 PO (21:28)
[2021-07-03] MEDS ORDERED: MIRT-89 PO (21:28)
[2021-07-03] MEDS ORDERED: GABA-1181 PO (21:28)
[2021-07-03] MEDS ORDERED: AMOX1TAB15 PO (21:28)
[2021-07-05] MEDS ORDERED: ASPI81 PO (21:11)
== END 2021-07-04 21:00 | disposition short-term general hospital (02) | DRG 885 ==
LOC: EMS 13:39 → B2S 06-28 11:32
PROVIDERS: ADMIT Psychiatry & Neurology Psychiatry; ATTEND Psychiatry & Neurology Psychiatry
DX: F25.1 Schizoaffective disorder, depressive type (principal); N39.0 Urinary tract infection, site not specified; F32.A Depression, unspecified; E78.5 Hyperlipidemia, unspecified; E87.6 Hypokalemia; F15.10 Other stimulant abuse, uncomplicated; J44.9 Chronic obstructive pulmonary disease, unspecified; F41.9 Anxiety disorder, unspecified; G47.00 Insomnia, unspecified; I10 Essential (primary) hypertension; I25.10 Atherosclerotic heart disease of native coronary artery without angina pectoris; Z20.822 Contact with and (suspected) exposure to COVID-19; Z86.73 Personal history of transient ischemic attack (TIA), and cerebral infarction without residual deficits; Z59.00 Homelessness unspecified; Z85.118 Personal history of other malignant neoplasm of bronchus and lung; Z87.891 Personal history of nicotine dependence; Z79.82 Long term (current) use of aspirin
CPT/HCPCS: 80048; 80053; 80061; 81001; 81002; 83735; 84100; 84132; 85025; 87086; 93005; 99285; G0480; J3475; J3480; J3535; Q0162

== ENCOUNTER → 2021-08-09 | Outpatient (CLI) | payer MEDICARE, MEDICAID ==
[~2021-08-09] VITALS: Ht 160 cm; Wt 70.0 kg
[~2021-08-09] MED LIST changes: +ACET-2247 PO; +ALPR-340 PO; +ASPI81 PO; -CARV12 PO; +CARV6 PO; +CITA-144 PO; +CLON-465 PO; +CLOP75TA60 PO; +DOCU-270 PO; +FERR-89 PO; +GABA-1181 PO; +HYDR-4396 PO; -METR500 PO; +MIRT-89 PO; +NITR0.4T50 SL; +ONDA4TAB96 PO; +PANT-31 PO; +QUET100T34 PO; -QUET25TA PO; +TRAM100T25 PO
[2021-08-09 11:42] VITALS: BP 164/88
== END | disposition still patient (30) ==
LOC: SRCNTR 11:04
PROVIDERS: ATTEND Hospitalist
DX: R91.1 Solitary pulmonary nodule (principal); I11.9 Hypertensive heart disease without heart failure; E78.5 Hyperlipidemia, unspecified; I25.10 Atherosclerotic heart disease of native coronary artery without angina pectoris; F19.10 Other psychoactive substance abuse, uncomplicated; F32.A Depression, unspecified; F41.9 Anxiety disorder, unspecified; Z88.8 Allergy status to other drugs, medicaments and biological substances; Z79.899 Other long term (current) drug therapy
CPT/HCPCS: G0463

== ENCOUNTER → 2021-09-06 | Outpatient (CLI) | payer MEDICARE, MEDICAID ==
[~2021-09-06] VITALS: Ht 160 cm; Wt 79.0 kg
[~2021-09-06] MED LIST changes: +ALPR-707 PO; -DOCU-270 PO; +DOCU-385 PO; -FERR-89 PO; +FERR325T27 PO; -MIRT-89 PO
[2021-09-06 12:26] VITALS: BP 145/77
== END | disposition home or self-care (01) ==
LOC: SRCNTR 11:47
PROVIDERS: ATTEND Hospitalist
DX: Z09 Encounter for follow-up examination after completed treatment for conditions other than malignant neoplasm (principal); I10 Essential (primary) hypertension; E78.5 Hyperlipidemia, unspecified; J44.9 Chronic obstructive pulmonary disease, unspecified; D64.9 Anemia, unspecified; F32.9 Major depressive disorder, single episode, unspecified; R91.1 Solitary pulmonary nodule; I69.351 Hemiplegia and hemiparesis following cerebral infarction affecting right dominant side
CPT/HCPCS: G0463; Z7500

== ENCOUNTER → 2021-10-10 | Outpatient (CLI) | payer MEDICARE, MEDICAID ==
[~2021-10-10] VITALS: Ht 160 cm; Wt 78.4 kg
[~2021-10-10] MED LIST changes: +BACL10TA PO; +CARV25 PO; +FLUO20CA36 PO; +HYDR-4584 PO; +QUET200T PO
[2021-10-10 12:54] VITALS: BP 135/73
== END | disposition home or self-care (01) ==
LOC: SRCNTR 12:18
PROVIDERS: ATTEND Hospitalist
DX: I10 Essential (primary) hypertension (principal); E78.5 Hyperlipidemia, unspecified; I25.10 Atherosclerotic heart disease of native coronary artery without angina pectoris; I63.9 Cerebral infarction, unspecified; F41.8 Other specified anxiety disorders; F19.10 Other psychoactive substance abuse, uncomplicated; Z72.0 Tobacco use
CPT/HCPCS: G0463; Z7500

== ENCOUNTER 2021-10-31 19:01 | Inpatient (IN) | payer MEDICARE, MEDICAID ==
[~2021-10-31] VITALS: Ht 157.5 cm; Wt 80.1 kg
[~2021-10-31 19:01] MED LIST changes: -BACL10TA PO; -CARV25 PO; -FLUO20CA36 PO; -HYDR-4584 PO; -QUET200T PO
[2021-10-31 21:48] LABS: BASOPHILS % (AUTO) 0.5 % (0.0-2.0); HEMATOCRIT 35.2 % (36-46); LYMPHOCYTES # (AUTO) 3.7 K/uL (1.0-4.8); LYMPHOCYTES % (AUTO) 51.6 % (22.0-44.0); MEAN CORPUSCULAR HEMOGLOBIN 24.2 pg (26.0-34.0); MEAN CORPUSCULAR HGB CONC 31.3 G/dL (31.0-37.0); MEAN CORPUSCULAR VOLUME 78 fL (80-100); MONOCYTES # (AUTO) 0.4 K/uL (0.1-1.0); MONOCYTES % (AUTO) 6.1 % (2.0-9.0); NEUTROPHILS # (AUTO) 2.8 K/uL (1.8-7.7); NEUTROPHILS % (AUTO) 39.8 % (40.0-70.0); PLATELET COUNT (AUTO) 240 K/uL (150-450); RED BLOOD CELL COUNT(AUTO) 4.54 MIL/uL (4.00-5.20); RED CELL DISTRIBUTION WIDTH 16.5 % (11.5-14.5)
[2021-10-31 22:02] LABS: ANION GAP 10 mmol/L (8-16); CALCIUM, TOTAL 8.5 mg/dL (8.8-10.5); CARBON DIOXIDE 25 mmol/L (22-29); CHLORIDE 106 mmol/L (98-107); CREATININE 0.89 mg/dL (0.60-1.30); GLOMERULAR FILTR. RATE CALC > 60 mL/min (>60); GLUCOSE,RANDOM 99 mg/dL (70-110); POTASSIUM 3.5 mmol/L (3.5-5.1); SODIUM SERUM 141 mmol/L (136-145); UREA NITROGEN, BLOOD 12 mg/dL (7-18)
[2021-10-31 22:07] LABS: ALANINE AMINOTRANSFERASE 41 U/L (12-78); ALBUMIN 3.3 g/dL (3.4-5.0); ALKALINE PHOSPHATASE 89 U/L (46-116); ASPARTATE AMINOTRANSFERASE 54 U/L (15-37); BILIRUBIN,TOTAL 0.2 mg/dL (0.1-1.0); TOTAL PROTEIN, SERUM 7.6 g/dL (6.4-8.2)
[2021-10-31 23:04] LABS: COVID AG,FIA SOURCE NASOPHARYNGEAL
[2021-11-01] MEDS ORDERED: HALOPERIDOL 5 MG TABLET PO PRN (04:45)
[2021-11-01] MEDS ORDERED: CloNIDine HCL 0.1 MG TABLET ONE (05:38)
[2021-11-01] MEDS: CloNIDine HCL 0.1 MG TABLET PO SCH ×3 (05:44→17:07)
[2021-11-01] MEDS: HydrALAZINE HCL 25 MG TABLET PO SCH ×2 (05:44→17:00)
[2021-11-01] MEDS: CARVEDILOL 6.25 MG TABLET PO SCH ×2 (05:44→18:49)
[2021-11-01 06:30] VITALS: BP 178/84
[2021-11-01] MEDS ORDERED: BENZOCAINE/MENTHOL LOZENGE PO PRN (11:15)
[2021-11-01] MEDS ORDERED: ONDANSETRON HCL 4 MG TABLET PO PRN (11:15)
[2021-11-01] MEDS ORDERED: ALBUTEROL SULFATE HFA 90 MCG/PUFF 8 GM INHALER IH PRN (11:15)
[2021-11-01] MEDS ORDERED: BACITRACIN 28 GM OINTMENT TP PRN (11:15)
[2021-11-01] MEDS ORDERED: MAGNESIUM HYDROXIDE SUSPENSION 30 ML UDCUP PO PRN (11:15)
[2021-11-01] MEDS ORDERED: NITROGLYCERIN 0.4 MG SUBLINGUAL TABLET #25 SL PRN (11:15)
[2021-11-01] MEDS ORDERED: PETROLATUM,WHITE 28 GM JELLY TP PRN (11:15)
[2021-11-01] MEDS ORDERED: MAG HYDROX/AL HYDROX/SIMETH ES 30 ML SUSPENSION UDCUP PO PRN (11:15)
[2021-11-01] MEDS ORDERED: LOPERAMIDE HCL 2 MG CAPSULE PO PRN (11:15)
[2021-11-01] MEDS: FERROUS SULFATE 325 MG EC TABLET PO SCH ×2 (13:38→17:09)
[2021-11-01 14:00] VITALS: BP 159/78
[2021-11-01] MEDS: ACETAMINOPHEN 325 MG TABLET PO PRN (14:00)
[2021-11-01 16:38] VITALS: BP 126/79
[2021-11-01] MEDS: GABAPENTIN 300 MG CAPSULE PO SCH (17:07)
[2021-11-01] MEDS: ATORVASTATIN CALCIUM 40 MG TABLET PO SCH (20:22)
[2021-11-01] MEDS: ZOLPIDEM TARTRATE 10 MG TABLET PO PRN (21:01)
[2021-11-02 04:40] VITALS: BP 131/79
[2021-11-02] MEDS: FERROUS SULFATE 325 MG EC TABLET PO SCH ×3 (06:45→16:16)
[2021-11-02] MEDS: ASPIRIN 81 MG CHEWABLE TABLET PO SCH (08:04)
[2021-11-02] MEDS: CLOPIDOGREL BISULFATE 75 MG TABLET PO SCH (08:05)
[2021-11-02] MEDS: GABAPENTIN 300 MG CAPSULE PO SCH ×2 (08:05→16:15)
[2021-11-02] MEDS: DOCUSATE SODIUM 100 MG CAPSULE PO SCH (08:05)
[2021-11-02] MEDS: LORazepam 2 MG TABLET PO PRN ×3 (08:15→19:06)
[2021-11-02 08:43] VITALS: BP 191/93
[2021-11-02 12:28] VITALS: BP 183/83
[2021-11-02] MEDS: CloNIDine HCL 0.1 MG TABLET PO PRN (12:28)
[2021-11-02 16:46] VITALS: BP 186/90
[2021-11-02] MEDS: OLANZapine 5 MG TABLET PO SCH (20:08)
[2021-11-02] MEDS: ATORVASTATIN CALCIUM 40 MG TABLET PO SCH (20:08)
[2021-11-02] MEDS: ZOLPIDEM TARTRATE 10 MG TABLET PO PRN (20:08)
[2021-11-03] VITALS (19 sets, daily range): BP systolic 149–195; BP diastolic 69–112
[2021-11-03] MEDS: CloNIDine HCL 0.1 MG TABLET PO PRN ×2 (05:56→18:11)
[2021-11-03] MEDS: FERROUS SULFATE 325 MG EC TABLET PO SCH ×3 (06:46→16:38)
[2021-11-03] MEDS: ASPIRIN 81 MG CHEWABLE TABLET PO SCH (08:52)
[2021-11-03] MEDS: GABAPENTIN 300 MG CAPSULE PO SCH ×2 (08:52→16:38)
[2021-11-03] MEDS: DOCUSATE SODIUM 100 MG CAPSULE PO SCH (08:53)
[2021-11-03] MEDS: CLOPIDOGREL BISULFATE 75 MG TABLET PO SCH (08:58)
[2021-11-03] MEDS: LORazepam 2 MG TABLET PO PRN ×2 (09:00→16:38)
[2021-11-03] MEDS: ACETAMINOPHEN 325 MG TABLET PO PRN (18:25)
[2021-11-03 20:17] LABS: BASOPHILS % (AUTO) 0.7 % (0.0-2.0); EOSINOPHILS % (AUTO) 2.6 % (1.0-6.0); HEMATOCRIT 35.9 % (36-46); HEMOGLOBIN 11.4 g/dL (12.0-16.0); LYMPHOCYTES # (AUTO) 3.2 K/uL (1.0-4.8); MEAN CORPUSCULAR HEMOGLOBIN 24.6 pg (26.0-34.0); MEAN CORPUSCULAR HGB CONC 31.8 G/dL (31.0-37.0); MEAN CORPUSCULAR VOLUME 77 fL (80-100); MONOCYTES # (AUTO) 0.4 K/uL (0.1-1.0); MONOCYTES % (AUTO) 6.8 % (2.0-9.0); NEUTROPHILS # (AUTO) 2.7 K/uL (1.8-7.7); NEUTROPHILS % (AUTO) 40.9 % (40.0-70.0); PLATELET COUNT (AUTO) 283 K/uL (150-450); RED BLOOD CELL COUNT(AUTO) 4.66 MIL/uL (4.00-5.20); RED CELL DISTRIBUTION WIDTH 16.5 % (11.5-14.5)
[2021-11-03 20:26] LABS: ANION GAP 8 mmol/L (8-16); CALCIUM, TOTAL 8.7 mg/dL (8.8-10.5); CARBON DIOXIDE 28 mmol/L (22-29); CHLORIDE 107 mmol/L (98-107); CREATININE 0.89 mg/dL (0.60-1.30); GLOMERULAR FILTR. RATE CALC > 60 mL/min (>60); GLUCOSE,RANDOM 122 mg/dL (70-110); POTASSIUM 3.8 mmol/L (3.5-5.1); SODIUM SERUM 143 mmol/L (136-145); UREA NITROGEN, BLOOD 22 mg/dL (7-18)
[2021-11-03] MEDS: ATORVASTATIN CALCIUM 40 MG TABLET PO SCH (20:29)
[2021-11-03] MEDS: OLANZapine 5 MG TABLET PO SCH (20:29)
[2021-11-03 20:32] LABS: ALANINE AMINOTRANSFERASE 36 U/L (12-78); ALBUMIN 3.1 g/dL (3.4-5.0); ALKALINE PHOSPHATASE 84 U/L (46-116); ASPARTATE AMINOTRANSFERASE 42 U/L (15-37); BILIRUBIN,TOTAL 0.2 mg/dL (0.1-1.0); TOTAL PROTEIN, SERUM 7.5 g/dL (6.4-8.2)
== END 2021-11-03 22:00 | disposition short-term general hospital (02) | DRG 885 ==
LOC: EMS 19:01 → 3EX 11-01 04:14
PROVIDERS: ADMIT Psychiatry & Neurology Psychiatry; ATTEND Psychiatry & Neurology Psychiatry
DX: F25.1 Schizoaffective disorder, depressive type (principal); I69.351 Hemiplegia and hemiparesis following cerebral infarction affecting right dominant side; R45.851 Suicidal ideations; F31.9 Bipolar disorder, unspecified; E78.5 Hyperlipidemia, unspecified; I10 Essential (primary) hypertension; I25.10 Atherosclerotic heart disease of native coronary artery without angina pectoris; F17.210 Nicotine dependence, cigarettes, uncomplicated; F15.10 Other stimulant abuse, uncomplicated; F41.9 Anxiety disorder, unspecified; Z20.822 Contact with and (suspected) exposure to COVID-19; G47.00 Insomnia, unspecified; F10.11 Alcohol abuse, in remission; K59.00 Constipation, unspecified; Y90.9 Presence of alcohol in blood, level not specified; Z88.8 Allergy status to other drugs, medicaments and biological substances; Z59.00 Homelessness unspecified; Z91.018 Allergy to other foods; Z71.41 Alcohol abuse counseling and surveillance of alcoholic; Z71.6 Tobacco abuse counseling
CPT/HCPCS: 70450; 80053; 83735; 84484; 85025; 93005; 99285; G0378; G0480